=== PATIENT | female | born 1960 | race Caucasian/White ===

== ENCOUNTER 2017-12-20 11:53 | Emergency (ER) | payer OTHER ==
[~2017-12-20] VITALS: Ht 157.5 cm; Wt 62.9 kg
[~2017-12-20 11:53] MED LIST: ACET-1600 PO; ACET-76 PO; ACET325T14 PO; ACTOS PO; AMOX-291 PO; AMOX1TAB61 PO; ASCO500C2 PO; CLOT15CR6 TP; CRESTOR PO; DOCU-180 PO; DOCU100C33 PO; EMPA25TA PO; FAMO20TA7 PO; FERR325T18 PO; GABA-827 PO; HYDR-3237 PO; INSU100V5 SQ-INSULIN; LISI-167 PO; LISI1TAB7 PO; METF10002 PO; METF500T17 PO; MUPI15CR9 TP; NORCO PO; OXYC5TAB3 PO; PIOG15TA22 PO; PIOG15TA4 PO; PIOG15TA66 PO; ROSU10TA PO; SENN-87 PO; [UNRECOGNIZED DRUG - OTHER] PO
[2017-12-20] MEDS ORDERED: SODIUM CHLORIDE 0.9% 1,000 ML IV ONE (12:33)
[2017-12-20] MEDS ORDERED: ONDANSETRON 2MG/ML, 2ML IVPush ONE (13:00)
[2017-12-20] MEDS ORDERED: SODIUM CHLORIDE FLUSH 10ML SYR IVF ONE (13:00)
[2017-12-20] MEDS ORDERED: ONDANSETRON ODT 4 MG ONE (13:03)
[2017-12-20 13:06] LABS: BASOPHILS # (AUTO) 0.02 x10^3/uL (0-0.1); BASOPHILS % (AUTO) 0 % (0-1); EOSINOPHILS # (AUTO) 0.02 x10^3/uL (0-0.4); EOSINOPHILS % (AUTO) 0 % (1-7); LYMPHOCYTES # (AUTO) 1.09 x10^3/uL (1-3.4); LYMPHOCYTES % (AUTO) 17 % (22-44); MD NO; MEAN CORPUSCULAR HGB CONC 34.7 g/dL (32.4-35.8); MEAN CORPUSCULAR VOLUME 89.3 fL (80-100); MEAN PLATELET VOLUME 8.5 fL (7.4-10.4); MONOCYTES # (AUTO) 0.39 x10^3/uL (0.2-0.8); MONOCYTES % (AUTO) 6 % (2-9); NEUTROPHILS # (AUTO) 4.87 x10^3/uL (1.8-6.8); NEUTROPHILS % (AUTO) 76 % (42-75); PLATELET COUNT 191 x10^3/uL (130-400); RED BLOOD COUNT 4.88 x10^6/uL (3.82-5.3); RED CELL DISTRIBUTION WIDTH 13.9 % (9.6-15.2)
[2017-12-20 13:16] LABS: ALBUMIN 3.4 g/dL (3.4-5.0); ANION GAP 9 mmol/L (5-15); CALCIUM 8.3 mg/dL (8.5-10.1); CHLORIDE 101 mmol/L (98-107)
[2017-12-20 13:20] LABS: ALANINE AMINOTRANSFERASE 21 U/L (12-78); ALKALINE PHOSPHATASE 111 U/L (45-117); BILIRUBIN,TOTAL 0.7 mg/dL (0.2-1.0); CREATININE 0.91 mg/dL (0.55-1.02); TOTAL PROTEIN 7.3 g/dL (6.4-8.2)
[2017-12-20 13:28] LABS: MICROSCOPIC INDICATED
[2017-12-20] MEDS ORDERED: ONDANSETRON ODT 4 MG PO ONE (13:30)
[2017-12-20 13:35] LABS: CULTURE INDICATED? YES
[2017-12-20] MEDS ORDERED: OMNIPAQUE 350 MG/ML, 100ML BOTTLE ONE (14:35)
[2017-12-20 14:41] VITALS: BP 145/70
== END 2017-12-20 15:12 | disposition home or self-care (01) ==
LOC: ED 14:37
DX: R10.32 Left lower quadrant pain (principal); R10.31 Right lower quadrant pain; R11.2 Nausea with vomiting, unspecified; R19.7 Diarrhea, unspecified; E11.9 Type 2 diabetes mellitus without complications; Z79.82 Long term (current) use of aspirin
CPT/HCPCS: 36415; 74177; 80053; 81001; 83690; 85025; 87086; 96360; 96361; 99285; J7030; Q0162; Q9967